=== PATIENT | male | born 1960 | race Caucasian/White ===

== ENCOUNTER 2019-05-21 12:47 | Emergency (ER) | payer MEDICARE ==
[2019-05-21] MEDS ORDERED: Tetan/Diph/Pertus SYR(Tdap)* 0.5 ML SYR(BOOSTRIX) use SYR contains LATEX IM ONE (13:32)
--- NOTE | 2019-05-21 13:35 | ED ---
Bite Injury/Animal - HPI Summary HPI Summary: Patient is a 58 y/o M presenting to the ED for a chief complaint of animal bite that occurred the morning of 05/21/19. Patient is present with his son. 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 He set the traps to catch coyotes at his son's house in [facility]. He was bitten by the raccoon on his right fifth finger and has a puncture of the finger. Patient released the raccoon, so the animal is not available for observation. He went to [facility] prior to going to [facility]. Patient denies any myalgia, headache, or fever. He denies any aggravating or alleviating factors. PMHx is significant for cervical bulging disc and epilepsy for which he takes medication. PSHx is significant for cervical spinal fusion. - History of Current Complaint Chief Complaint: EDAnimalBite Stated Complaint: ANIMAL BITE PER PT Time Seen by Provider: 05/21/19 13:32 Hx Obtained From: Patient Onset of Injury: Happened hours ago - Morning of 05/21/19, Still Present Type of Bite: Wild Animal - Raccoon Hx of Bite: Provoked by: - Setting an animal trap Has Animal Been Immunized?: Unknown Severity Initially: Mild Severity Currently: None Pain Intensity: 0 Pain Scale Used: 0-10 Numeric Character: Puncture Aggravating Factor(s): Nothing Alleviating Factor(s): Nothing Associated Signs And Symptoms: Negative: Fever Animal Available for Observation: No - Allergies/Home Medications Allergies/Adverse Reactions: Allergies Allergy/AdvReac Type Severity Reaction Status Date / Time poison aric extract Allergy Rash Verified 05/21/19 12:53 Home Medications: Home Medications Levetiracetam XR TAB(NF) [Keppra XR TAB(NF)] 500 mg PO BID 05/21/19 [History Confirmed 05/21/19] Lisdexamfetamine Dimesylate [Vyvanse] 50 mg PO BID 05/21/19 [History Confirmed 05/21/19] Methadone HCl 10 mg PO QID PRN 05/21/19 [History Confirmed 05/21/19] Zolpidem Tartrate 10 mg PO DAILY 05/21/19 [History Confirmed 05/21/19] diazePAM [Diazepam] 5 mg PO TID 05/21/19 [History Confirmed 05/21/19] traZODone TAB* [Desyrel TAB*] 25 mg PO BEDTIME 05/21/19 [History Confirmed 05/21] PMH/Surg Hx/FS Hx/Imm Hx Previously Healthy: Yes Cardiovascular History: Denies: Hx Hypercholesterolemia Sensory History: Denies: Hx Legally Blind, Hx Deafness Opthamlomology History: Denies: Hx Legally Blind EENT History: Denies: Hx Deafness Neurological History: Reports: Other Neuro Impairments/Disorders - Epilepsy, bulging cervical disc - Surgical History Surgical History: Yes Surgery Procedure, Year, and Place: Cervical spinal fusion Infectious Disease History: No Infectious Disease History: Denies: Traveled Outside the [place] in Last 30 Days - Family History Known Family History: Negative: Diabetes - Social History Occupation: Retired Lives: Alone Alcohol Use: None Hx Substance Use: No Substance Use Type: Reports: None Hx Tobacco Use: No Smoking Status (MU): Never Smoked Tobacco Review of Systems Negative: Fever Negative: Myalgia Positive: Other - Positive puncture to the right fifth finger Negative: Headache All Other Systems Reviewed And Are Negative: Yes Physical Exam - Summary Physical Exam Summary: General: Well appearing, no distress Cardiovascular: Skin is well perfused Pulmonary: No respiratory distress, no tachypnea Abdomen: Non-distended Skin: Bite to the right PIP of the pinky. MSK: no edema Psych: Normal affect Neuro: A&Ox3 Triage Information Reviewed: Yes Vital Signs On Initial Exam: Initial Vitals Temp Pulse Resp BP Pulse Ox 98.5 F 84 16 177/97 100 05/21/19 12:50 05/21/19 12:50 05/21/19 12:50 05/21/19 12:50 05/21/19 12:50 Vital Signs Reviewed: Yes Procedures - Sedation Patient Received Moderate/Deep Sedation with Procedure: No Diagnostics - Vital Signs Vital Signs Temp Pulse Resp BP Pulse Ox 05/21/19 12:50 98.5 F 84 16 177/97 100 - Laboratory Lab Statement: Any lab studies that have been ordered have been reviewed, and results considered in the medical decision making process. Re-Evaluation - Re-Evaluation First Eval Re-Evaluation Time: 15:22 Change: Unchanged Comment: At 15:22, I infiltrated the wound with the rabies vaccine immunoglobulin. Bite Injury Course/Dx - Course Course Of Treatment: 58 or male presents with a raccoon bite to the left fifth digit. - Physical exam with a superficial bite to the fifth digit. Patient tetanus updated, given rabies prophylaxis w immunoglobulin directly at site, and vaccine. D/w [facility] where bite occured. Patient to follow-up in [facility] where he lives. Department of health aware. Also given Augmentin twice a day 7 days - Diagnoses Provider Diagnosis: Raccoon bite Discharge ED - Sign-Out/Discharge Documenting (check all that apply): Patient Departure - Discharge - Discharge Plan Condition: Stable Disposition: HOME Prescriptions: Amoxicillin/Clavulanate TAB* [Augmentin TAB 875*] 875 mg PO BID 7 Days #14 tab Patient Education Materials: Rabies Vaccine (ED) Referrals: [facility] [Outside] Additional Instructions: You were seen in the ER for a raccoon bite. You will get 4 doses of rabies vaccine one dose right away, and additional doses on the 3rd, 7th, and 14th days. The [facility] will call you on Thursday. You will likely be able to go to an urgent care in your area. If not, you can go to convenient care for this or come back to the ED. You also got a tetanus shot. Take Augmentin twice a day for 7 days. - Billing Disposition and Condition Condition: STABLE Disposition: Home - Attestation Statements Document Initiated by Stas: Yes Documenting Scribe: Keyla León Provider For Whom Stas is Documenting (Include Credential): Jesus Meza MD Scribe Attestation: I, Keyla León, scribed for Jesus Meza MD on 05/21/19 at 1604. Scribe Documentation Reviewed: Yes Provider Attestation: The documentation as recorded by the Keyla fuller accurately reflects the service I personally performed and the decisions made by me, Jesus Meza MD Status of Scribsohan Document: Viewed
[2019-05-21] MEDS ORDERED: Rabies VIRUS VACCINE (Imovax)* 2.5 UNIT/ML 1 ML IM ONE (14:33)
[2019-05-21] MEDS ORDERED: Rabies Immune Globulin/PF 1ML* 1 ML/300 UNITS VIAL IM ONE (14:33)
[2019-05-21] MEDS ORDERED: RABIES IMMUNE GLOBULIN IM ONE (15:00)
[2019-05-21] MEDS ORDERED: Amoxicillin/Clavulanate TAB* 875 MG PO ONE (15:07)
[2019-05-21 15:47] VITALS: BP 171/107
== END 2019-05-21 15:45 | disposition home or self-care (01) ==
LOC: ED 12:47
DX: S61.257A Open bite of left little finger without damage to nail, initial encounter (principal); Z23 Encounter for immunization; W55.51XA Bitten by raccoon, initial encounter; Y92.009 Unspecified place in unspecified non-institutional (private) residence as the place of occurrence of the external cause; Z79.899 Other long term (current) drug therapy
CPT/HCPCS: 90375; 90471; 90715; 96372; 99282; A9270-GY

== ENCOUNTER 2019-05-26 04:50 | Emergency (ER) | payer MEDICARE ==
--- NOTE | 2019-05-26 05:27 | ED ---
Altered Mental Status - HPI Summary HPI Summary: Pt is a 58 y/o M presenting to the ED brought in by EMS for altered mental status. Pts son states he has hx of TBI that has caused seizures in the past, and he usually experiences an aura prior to seizing. He states the auras last about an hour at most, but tonight he woke up around 2200 after sleeping for about 2 hours not acting normally. It seems to be similar to his aura, but extremely exaggerated. He denies the pt experiencing vomiting, diarrhea, or complaining of pain. Denies trauma or falls. - History Of Current Complaint Chief Complaint: EDAltMentalStatus Stated Complaint: AMS PER EMS Time Seen by Provider: 05/26/19 04:51 Hx Obtained From: Patient, Family/News Technical Director Onset/Duration: Still Present, Gradually Timing: Constant, Lasting Hours Severity Initially: Moderate Severity Currently: Moderate Character: Confusion, Agitation Aggravating Factor(s): Unknown Alleviating Factor(s): Nothing Associated Signs And Symptoms: Negative: Vomiting - Allergies/Home Medications Allergies/Adverse Reactions: Allergies Allergy/AdvReac Type Severity Reaction Status Date / Time poison aric extract Allergy Rash Verified 05/26/19 05:01 Home Medications: Home Medications Cyclobenzaprine TAB* [Flexeril 10 MG TAB*] 1 tab PO Q8HR PRN 05/26/19 [History Confirmed 05/26/19] lisinopriL [Lisinopril] 20 mg PO DAILY 05/26/19 [History Confirmed 05/26/19] PMH/Surg Hx/FS Hx/Imm Hx Previously Healthy: Yes Cardiovascular History: Denies: Hx Hypercholesterolemia Sensory History: Denies: Hx Legally Blind, Hx Deafness Opthamlomology History: Denies: Hx Legally Blind Neurological History: Reports: Hx Seizures, Other Neuro Impairments/Disorders - Epilepsy, bulging cervical disc, TBI - Surgical History Surgery Procedure, Year, and Place: Cervical spinal fusion Infectious Disease History: No Infectious Disease History: Denies: Traveled Outside the [place] in Last 30 Days - Family History Known Family History: Negative: Diabetes - Social History Alcohol Use: None Hx Substance Use: No Substance Use Type: Reports: None Substance Use Comment - Amount & Last Used: medical Hx Tobacco Use: No Smoking Status (MU): Never Smoked Tobacco Review of Systems - ROS Summary Review of Systems Summary: Home Medications Medication Instructions Recorded Confirmed Type Amoxicillin/Clavulanate TAB* 875 mg PO BID 7 Days #14 tab 05/21/19 Rx [Augmentin TAB 875*] Levetiracetam XR TAB(NF) [Keppra 500 mg PO BID 05/21/19 05/21/19 History XR TAB(NF)] Lisdexamfetamine Dimesylate 50 mg PO BID 05/21/19 05/21/19 History [Vyvanse] Methadone HCl 10 mg PO QID PRN 05/21/19 05/21/19 History Zolpidem Tartrate 10 mg PO DAILY 05/21/19 05/21/19 History diazePAM [Diazepam] 5 mg PO TID 05/21/19 05/21/19 History traZODone TAB* [Desyrel TAB*] 25 mg PO BEDTIME 05/21/19 05/21/19 History Negative: Vomiting, Diarrhea Negative: Myalgia Neurological: Other - confusion, combative, experiencing an "exaggerated aura" All Other Systems Reviewed And Are Negative: Yes Physical Exam - Summary Physical Exam Summary: General: Well-developed, Well-nourished male. No acute distress. HEENT: Normocephalic, Atraumatic. Eyes: Conjuctiva normal, PERRL. Oropharynx: Clear, mucous membranes moist, (-) exudates. Neck: Soft, FROM, (-) lymphadenopathy, (-) thyromegaly, (-) JVD. Cardiovascular: Normal sinus rhythm, (-) murmur. Lungs: Clear to auscultation bilaterally (-) wheezes, (-) rales, (-) rhonchi. Abdomen: Soft, non-tender, non-distended, (-) organomegaly, normal bowel sounds. Back: (-) CVA tenderness Extremities: No edema. Skin: Warm, dry, (-) rash. Neuro: Alert and oriented x3, confused. Flight of ideas and pressured speech at times. Psychiatric: Mood normal, affect normal. Triage Information Reviewed: Yes Vital Signs On Initial Exam: Initial Vitals Temp Pulse Resp BP Pulse Ox 99.4 F 104 16 186/88 96 05/26/19 05:01 05/26/19 05:01 05/26/19 05:01 05/26/19 05:01 05/26/19 05:01 Vital Signs Reviewed: Yes - [place] Coma Scale Best Eye Response: 4 - Spontaneous Best Motor Response: 6 - Obeys Commands Best Verbal Response: 5 - Oriented Coma Scale Total: 15 Procedures - Sedation Patient Received Moderate/Deep Sedation with Procedure: No Diagnostics - Vital Signs Vital Signs Temp Pulse Resp BP Pulse Ox 05/26/19 05:01 99.4 F 104 16 186/88 96 - Laboratory Result Diagrams: 05/26/19 05:28 05/26/19 05:28 Lab Statement: Any lab studies that have been ordered have been reviewed, and results considered in the medical decision making process. - Radiology CXR Radiology Interpretation Completed By: ED Physician Summary of Radiographic Findings: No infiltrate. No pleural effusion. Pending official radiology report. - CT Brain CT CT Interpretation Completed By: Radiologist Summary of CT Findings: No acute intracranial abnormality. ED physician has reviewed this report. - EKG 0519 Cardiac Rate: NL - 97bpm EKG Rhythm: Sinus Rhythm ST Segment: Normal Ectopy: None Summary of EKG Findings: EKG at 0519 reveals normal sinus rhythm with rate of 97 BPM, no acute changes, no ischemic changes. This EKG was reviewed and interpreted by Dr. Howell. Re-Evaluation - Re-Evaluation 1st re-eval Re-Evaluation Time: 06:51 Change: Improved Comment: I have discussed results with the patient and symptoms have resolved. Discussed symptoms that warrant immediate return to ED. Started pt on antibiotics. Altered Mental Statu Course/Dx - Course Course Of Treatment: 58 year old male from home by ambulance for confusion. son gives history. patient has history of TBI. also seizures. sometimes he will have periods of confusion before a seizure. they usually last less than an hour. , no fevers, cp/sob. no cough. v/d. physical exam normal except for confusion, A & O x 3 at times. workup demonstrated uti. brain ct wnl. In the ED course, pt was given 2gm Ceftriaxone for UTI. antibiotics found in his medicine bag prescribed for uti. neillle still with large number of pills present even though prescribed 3 weeks ago. discharged home on keflex. plenty of fluids, follow up with pcp in one week. follow up sooner for any worsening symptoms. - Diagnoses Provider Diagnoses: Confusion, UTI (urinary tract infection) Discharge ED - Sign-Out/Discharge Documenting (check all that apply): Patient Departure - Discharge Plan Condition: Stable Disposition: HOME Prescriptions: Sulfamethoxazole/Trimethoprim [Sulfamethoxazole-Tmp Ds Tablet] 1 each PO BID # 20 tablet Patient Education Materials: Urinary Tract Infection in Men (DC) [facility]errals: [facility] [Outside] Additional Instructions: Please follow up with your primary care physician within one week for re-check. Please return to ED for any new or worsening symptoms. - Billing Disposition and Condition Condition: STABLE Disposition: Home - Attestation Statements Document Initiated by Sullyibe: Yes Documenting Scribe: Chela Matthews Provider For Whom Stas is Documenting (Include Credential): Tammy Howell MD. Scribe Attestation: Chela Stanton, scribed for Tammy Howell MD. on 05/26/19 at 2207. Scribe Documentation Reviewed: Yes Provider Attestation: The documentation as recorded by the sullyibeChela accurately reflects the service I personally performed and the decisions made by , Tammy Howell MD. Status of Scribe Document: Viewed
[2019-05-26] MEDS: NS 0.9% 1000 ML** 1,000 ML IV ONE (05:28)
[2019-05-26 05:30] LABS: Urine Appearance Cloudy; Urine Bilirubin Negative (Negative); Urine Blood 3+ (Negative); Urine Color Amber; Urine Glucose Negative (Negative); Urine Ketones Negative (Negative); Urine Nitrite Negative (Negative); Urine Protein 2+(100 mg/dL) (Negative); Urine Specific Gravity 1.021 (1.010-1.030); Urine Urobilinogen Negative (Negative)
[2019-05-26 05:38] LABS: Urine Bacteria Absent (Absent); Urine Red Blood Cell 3+(>10/hpf) (Absent); Urine White Blood Cell 2+(11-20/hpf) (Absent)
[2019-05-26 05:39] LABS: ABS Eosinophils 0.2 10^3/ul (0-0.6); ABS Lymphocytes 1.4 10^3/ul (1.0-4.8); ABS Monocytes 0.9 10^3/ul (0-0.8); ABS Neutrophils 5.3 10^3/ul (1.5-7.7); Eosinophil % 2.7 %; Hematocrit 34 % (42-52); Hemoglobin 11.7 g/dL (14.0-18.0); Lymphocyte % 18.4 %; Mean Corpuscular HGB Conc 35 g/dL (31-36); Mean Corpuscular Hemoglobin 29 pg (27-31); Mean Corpuscular Volume 83 fL (80-94); Mean Platelet Volume 8.3 fL (7.4-10.4); Platelet Count 307 10^3/uL (150-450); Red Blood Count 4.03 10^6 /uL (4.18-5.48); Red Cell Distribution Width 15 % (10-15); White Blood Count 7.9 10^3/uL (3.5-10.8)
[2019-05-26 05:47] LABS: INR 1.23 (0.82-1.09)
[2019-05-26 05:56] LABS: ALT 20 U/L (7-52); AST 19 U/L (13-39); Albumin 4.3 g/dL (3.2-5.2); Albumin/Globulin Ratio 1.7 (1-3); Alkaline Phosphatase 102 U/L (34-104); Anion Gap 7 mmol/L (2-11); BUN/Creatinine Ratio 13.6 (8-20); Blood Urea Nitrogen 16 mg/dL (6-24); CO2 Carbon Dioxide 25 mmol/L (22-32); Calcium 10.5 mg/dL (8.6-10.3); Chloride 107 mmol/L (101-111); EGFR African American 77.3 (>60); EGFR Non-African American 63.9 (>60); Globulin 2.5 g/dL (2-4); Glucose 106 mg/dL (70-100); Potassium 3.5 mmol/L (3.5-5.0); Sodium 139 mmol/L (135-145); Total Protein 6.8 g/dL (6.4-8.9)
[2019-05-26 05:59] LABS: Troponin I 0.01 ng/mL (<0.03)
[2019-05-26 06:07] LABS: Acetaminophen < 15 mcg/mL; Alcohol < 10 mg/dL (<10)
[2019-05-26] MEDS: cefTRIAXone(*) 2 GM in NS 0.9% 100 ML* 100 ML IVPB ONE (06:32)
[2019-05-26 08:19] VITALS: BP 173/101
== END 2019-05-26 08:18 | disposition home or self-care (01) ==
LOC: ED 04:50
DX: R41.0 Disorientation, unspecified (principal); N39.0 Urinary tract infection, site not specified; Z79.899 Other long term (current) drug therapy
CPT/HCPCS: 36415; 70450; 71045; 80053; 80320; 80329; 81003; 81015; 82803; 83605; 84484; 85025; 85610; 87040; 87086; 93005; 96361; 96365; 99284; G0480; J0696